=== PATIENT | female | born 1980 | race Hispanic/Latino ===

== ENCOUNTER 2017-12-09 08:59 | Outpatient (CLI) | payer OTHER | END 2017-12-09 09:00 | disposition home or self-care (01) | LOC: BICMAMMO 08:59 | PROVIDERS: ATTEND Family Medicine | DX: N63.0 Unspecified lump in unspecified breast (principal) | CPT/HCPCS: 77066; G0279 ==

== ENCOUNTER 2018-01-20 14:26 | Outpatient (CLI) | payer OTHER ==
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
== END 2018-01-20 14:27 | disposition home or self-care (01) ==
LOC: SCSRAD 14:26
PROVIDERS: ATTEND Family Medicine
DX: M25.511 Pain in right shoulder (principal); M79.641 Pain in right hand; V89.2XXA Person injured in unspecified motor-vehicle accident, traffic, initial encounter